=== PATIENT | female | born 1950 | race Two or more races ===

== ENCOUNTER 2017-06-04 12:24 | Inpatient (IN) | payer OTHER ==
[~2017-06-04] VITALS: Ht 172.7 cm; Wt 77.1 kg
[2017-06-04] MEDS ORDERED: RITMOL PO (12:43)
[2017-06-04] MEDS ORDERED: INDERAL LA80 MG PO (12:43)
[2017-06-04] MEDS ORDERED: PAN-C 500 TABL1 EACH PO (12:44)
[2017-06-04] MEDS ORDERED: ASA81 MG PO (12:44)
[2017-06-04] MEDS ORDERED: MAGNESIUM100 MG PO (12:45)
[2017-06-04] MEDS ORDERED: OMEGA 3 1,0001 EACH PO (12:45)
[2017-06-04] MEDS ORDERED: B-12500 MCG PO (12:45)
[2017-06-04] MEDS ORDERED: VITAMIN D400 UNI2 PO (12:45)
== END 2017-06-08 14:57 | disposition home or self-care (01) | DRG 743 ==
LOC: O/R 06-06 07:25 → EDSTATUS 06-06 12:23 → CIR.AMB 06-06 12:23 → SURG 06-06 12:24
PROVIDERS: Obstetrics & Gynecology
PROC: 0JQC0ZZ Repair Pelvic Region Subcutaneous Tissue and Fascia, Open Approach (ICD-10-PCS; 2017-06-06)
PROC: 0UT97ZZ Resection of Uterus, Via Natural or Artificial Opening (ICD-10-PCS; principal; 2017-06-06 12:30)
DX: N81.2 Incomplete uterovaginal prolapse (principal); D25.1 Intramural leiomyoma of uterus

== ENCOUNTER 2020-07-07 07:44 | Outpatient (CLI) | payer OTHER ==
[~2020-07-07 07:44] MED LIST: ASA81 MG PO; B-12500 MCG PO; INDERAL LA80 MG PO; MAGNESIUM100 MG PO; OMEGA 3 1,0001 EACH PO; PAN-C 500 TABL1 EACH PO; RITMOL PO; VITAMIN D400 UNI2 PO
== END 2020-07-07 07:53 | disposition home or self-care (01) ==
LOC: TOM 07:44
PROVIDERS: ATTEND Internal Medicine Gastroenterology
DX: K57.30 Diverticulosis of large intestine without perforation or abscess without bleeding (principal); Z12.11 Encounter for screening for malignant neoplasm of colon; Z86.010 Personal history of colon polyps; K56.600 Partial intestinal obstruction, unspecified as to cause